=== PATIENT | female | born 1970 | race Hispanic/Latino ===

== ENCOUNTER → 2018-09-20 | Day surgery (SDC) | payer OTHER ==
[~2018-09-20] MED LIST: ACETAMINOPHEN 1000 MG/100 ML IV ONE; ATORVASTATIN CA10 MG PO; BUPIVACAINE 0.25%/EPI 30ML SDV INJ ONE; CHOLESTEROL MED; DEXAMETHASONE SOD PHOS INJ 4 MG/ML VIAL ONE; DIABETES MED; FENTANYL CITRATE/PF 100MCG/2 ML INJ ONE; GLYCOPYRROLATE INJ 1MG/ 5 ML SYR ONE; KETOROLAC TROMETHAMINE 30 MG/ML VIAL ONE; LIDOCAINE HCL 2% LOCAL INJ 5 ML SDV VIAL INJ ONE; METFORMIN HCL500 MG PO; MIDAZOLAM HCL 2 MG/2 ML VIAL ONE; MORPHINE SULFATE INJ 4 MG/ML INJ ONE; MULTI-VITAMIN1 EACH; NEOSTIGMINE 5 MG/5ML SYR ONE; ONDANSETRON HCL INJ 2 MG/ML VIAL ONE; PROPOFOL IV EMULSION 10 MG/ML 20 ML VIAL ONE; ROCURONIUM BROMIDE 10 MG/ML 5ML VIAL ONE; SEVOFLURANE INHAL SOLN 250 ML PEN BTL ONE
--- OUTSIDE RECORDS SUMMARY | 2018-09-20 05:25 | XMS REPORT ---
Author Author [facility] Address Unknown Phone Unavailable Care Team Providers Care Vendor Analyst Name Role Phone Unavailable Unavailable Payers Payer Name Policy Type Policy Number Effective Date Expiration Date Problems This patient has no known problems. Allergies, Adverse Reactions, Alerts Allergy Name Allergy Type Status Severity Reaction(s) Onset Date Inactive Date Treating Clinician Comments No Known Allergies DA Active U 2018-08-28 00:00:00 No Known Allergies DA Active U 2015-11-23 00:00:00 Medications This patient has no known medications.
--- NOTE | 2018-09-20 10:34 | Operative Report ---
DATE OF PROCEDURE: September 20, 2018 PREOPERATIVE DIAGNOSES 1. Cholelithiasis and chronic cholecystitis. 2. Abdominal pain. POSTOPERATIVE DIAGNOSES 1. Cholelithiasis and chronic cholecystitis. 2. Abdominal pain. PROCEDURE PERFORMED: Laparoscopic cholecystectomy. COKE INSPECTOR: ION Clay ESTIMATED BLOOD LOSS: Minimal. DRAINS: None. COMPLICATIONS: None. INDICATIONS AND FINDINGS: The patient is a 47-year-old female who was found to have gallstones during an emergency room visit for UTI by CT scan. She had a history of right upper quadrant pain and fatty food intolerance. No vomiting. No history of jaundice. Preoperative liver chemistries were normal. She is diabetic. INTRAOPERATIVE FINDINGS: She had multiple gallstones. There was no ductal dilatation of the cystic nor the common bile duct. The multiple stones were dark color and created a mass effect in the gallbladder. DESCRIPTION OF PROCEDURE: With the patient lying on the operating table in the supine position and after administration of general anesthesia, she was prepped and draped for laparoscopic cholecystectomy. The procedure was begun by establishing a pneumoperitoneum in the right upper quadrant midclavicular line because of previous pelvic surgery. A pneumoperitoneum was insufflated to 15 mm of pressure after the saline drop test was performed. Then we introduced a 5-mm trocar in that location. The camera was introduced. There were some omental adhesions to the periumbilical area. We placed a 10/11 trocar in that location. There was no bowel in the vicinity. After we did that, we rotated the patient to the left and with the head up, we placed a 10 mm subxiphoid port. Finally, we placed a right anterior axillary line 5-mm trocar. The gallbladder was then identified. It was rather long. We went ahead and retracted cephalad and laterally proximal to the neck of the gallbladder and cystic duct in that location. We identified the common bile duct junction. We identified the cystic artery. At that point, then we went ahead and transected both structures between titanium clips. Then we removed the gallbladder using a combination of cautery, traction, countertraction, hydrodissection until we detached the long gallbladder from the liver bed. We extracted the gallbladder from the umbilical site. We then reinstituted the pneumoperitoneum. We irrigated the operative field, including the gallbladder bed fossa after ascertaining there was no bile leak. No bleeding. No apparent bowel injury, and that the effluent fluid was clear. We released the trocars and closed the wounds using 2 of the 0 Vicryl for the umbilical fascia, 3-0 Vicryl subcutaneous location in the umbilical port, as well as the subxiphoid port. The umbilical port was closed using 3-0 silk because of scar in that location from previous surgery. The remaining port sites was closed using aaron. Then 0.25% Marcaine with epinephrine was given as local block at the end of the case. The patient tolerated the procedure well and taken to the recovery room in stable condition. Job#: [id number]
[2018-09-20 10:55] VITALS: BP 116/66
== END | disposition home or self-care (01) ==
LOC: OR 05:23
PROVIDERS: ATTEND Surgery
DX: K80.10 Calculus of gallbladder with chronic cholecystitis without obstruction (principal); E11.9 Type 2 diabetes mellitus without complications; Z79.84 Long term (current) use of oral hypoglycemic drugs; Z01.810 Encounter for preprocedural cardiovascular examination; Z01.812 Encounter for preprocedural laboratory examination
CPT/HCPCS: 36415; 47562; 82948; 88304; 93005; C1766; J0131; J1100; J1885; J2001; J2250; J2270; J2405; J2704; J3490

== ENCOUNTER → 2021-08-05 | Outpatient (CLI) | payer BC ==
[~2021-08-05] MED LIST changes: -ACETAMINOPHEN 1000 MG/100 ML IV ONE; -BUPIVACAINE 0.25%/EPI 30ML SDV INJ ONE; -DEXAMETHASONE SOD PHOS INJ 4 MG/ML VIAL ONE; -FENTANYL CITRATE/PF 100MCG/2 ML INJ ONE; -GLYCOPYRROLATE INJ 1MG/ 5 ML SYR ONE; -KETOROLAC TROMETHAMINE 30 MG/ML VIAL ONE; -LIDOCAINE HCL 2% LOCAL INJ 5 ML SDV VIAL INJ ONE; -MIDAZOLAM HCL 2 MG/2 ML VIAL ONE; -MORPHINE SULFATE INJ 4 MG/ML INJ ONE; -NEOSTIGMINE 5 MG/5ML SYR ONE; -ONDANSETRON HCL INJ 2 MG/ML VIAL ONE; -PROPOFOL IV EMULSION 10 MG/ML 20 ML VIAL ONE; -ROCURONIUM BROMIDE 10 MG/ML 5ML VIAL ONE; -SEVOFLURANE INHAL SOLN 250 ML PEN BTL ONE
== END ==
LOC: RAD 11:35
PROVIDERS: ATTEND Family Medicine
DX: M25.562 Pain in left knee (principal)

== ENCOUNTER → 2021-09-05 | Outpatient (CLI) | payer BC | LOC: MRI 09:08 | PROVIDERS: ATTEND Specialist | DX: S83.222A Peripheral tear of medial meniscus, current injury, left knee, initial encounter (principal) ==

== ENCOUNTER 2024-06-15 11:08 | Emergency (ER) | payer BC ==
[~2024-06-15] VITALS: Ht 160 cm; Wt 84.8 kg
[2024-06-15 11:30] VITALS: TEMP 98.8
[2024-06-15] MEDS: KETOROLAC TROMETHAMINE 60 MG/2 ML VIAL IM ONE (12:55)
[2024-06-15] MEDS: HYDROCODONE/APAP 5MG-325MG TAB PO ONE (12:56)
[2024-06-15 15:12] VITALS: PULSE 70; RESP 16; O2SAT 100
[2024-06-15] MEDS ORDERED: METHOCARBAMOL500 MG PO (15:14)
== END 2024-06-15 15:40 | disposition home or self-care (01) ==
LOC: ER 12:07
DX: M54.41 Lumbago with sciatica, right side (principal); I10 Essential (primary) hypertension; E11.9 Type 2 diabetes mellitus without complications
CPT/HCPCS: 72110; 99283; J1885